=== PATIENT | female | born 1935 | race Caucasian/White ===

== ENCOUNTER 2016-11-15 08:43 | Day surgery (SDC) | payer MEDICARE, OTHER ==
--- NOTE | 2016-11-15 07:06 | History and Physical - [facility] ---
CHIEF COMPLAINT/HISTORY OF CHIEF COMPLAINT: This patient presents with a history of an intractable lumbar radiculitis. Due to the failure of all therapy including a spinal cord stimulator trial, the patient presents today for an implanted spinal opioid infusion trial with Hydromorphone. PAST MEDICAL HISTORY: Bladder dysfunction, degenerative arthritis, and radiculitis. PAST SURGICAL HISTORY: Hysterectomy, cancer, colon surgery, ankle and sternal fracture repairs. EMPLOYMENT STATUS: Retired. MEDICATIONS ON ADMISSION: List to be provided. ALLERGIES: None. FAMILY/PSYCHOSOCIAL HISTORY: Social history - Noncontributory. Family history - Cancer. SYSTEMS REVIEW: The patient seems appropriated in no acute distress. The remainder of the systems review is positive for glasses, degenerative arthritis , and difficulty with sleeping. PHYSICAL EXAMINATION: Height is 5'3", weight is 170. No vital signs. HEENT: Within normal limits. LUNGS: Clear. HEART: Regular rate and rhythm. ABDOMEN: Nontender. MUSCULOSKELETAL: Examination of the musculoskeletal system shows diffuse tenderness of the lumbar spine. Range of motion causing pain into both legs, somewhat more left than right. Ambulation - No assistive device utilized. NEUROLOGIC: Cranial nerves are intact. IMPRESSION: INTRACTABLE LUMBAR RADICULITIS, ICD10 CODE M54.16 AND M54.17. PLAN: The patient is here for an implanted spinal catheter infusion trial with Hydromorphone. The procedure will be considered outpatient and an overnight stay will be evaluated. All of the potential risks, side effects and complications have been carefully reviewed and discussed including nerve root injury, spinal cord injury, dural puncture, spinal headache and failure of the device to control pain. The patient understands, has read all of the appropriate information provided including the [employer] spinal opioid infusion device CD-ROM and information book which carefully outlines all of the potential risks, side effects and complications. An epidural blood patch will be attempted to help minimize the incidence of a dural puncture and spinal headache. The patient understands and has agreed. JAVAD SCHMITZ D.O. Date & Time JOB NUMBER: [id number] MTDD
[~2016-11-15 08:43] MED LIST: ACETAMINOPHEN 1,000 MG/100 ML BTL IV ONE; CEFAZOLIN 2 Gram 2 GM/50 ML BAG IVPB ONE; FAMOTIDINE 20MG TABLET PO ONE; HYDROMORPHONE PF 2MG/ML AMP 0.004 MG in 0.9 % SODIUM CHLORIDE 10ML VIA 0.998 ML IV ONE; HYDROMORPHONE PF 2MG/ML AMP 2 MG in 0.9 % SODIUM CHLORIDE 500ML 499 ML IV ONE; MECLIZINE 25 MG TABLET PO ONE; METOCLOPRAMIDE 10 MG TABLET PO ONE
[2016-11-15] MEDS ORDERED: HYDROMORPHONE HCL 2 MG/ML VIAL IM PRN (12:16)
[2016-11-15] MEDS ORDERED: DIPHENHYDRAMINE HCL 25 MG CAPSULE PO PRN ×2 (12:16)
[2016-11-15] MEDS ORDERED: HYDROMORPHONE HCL 1 MG/ML CPJ IM PRN (12:16)
[2016-11-15] MEDS ORDERED: OXYCODONE/APAP 10MG-325MG TABLET PO PRN (12:16)
[2016-11-15] MEDS ORDERED: SENNOSIDES/DOCUSATE SODIUM UD CAPSULE PO PRN ×2 (12:16)
[2016-11-15] MEDS ORDERED: DIPHENHYDRAMINE HCL IV 50 MG/ML VIAL IVP PRN ×2 (12:16)
[2016-11-15] MEDS ORDERED: METOCLOPRAMIDE HCL 10 MG/2 ML VIAL IVP PRN (12:16)
[2016-11-15] MEDS ORDERED: AL HYDROX/MAG HYDROX 30ML UD PO PRN (12:16)
[2016-11-15] MEDS ORDERED: TEMAZEPAM 15 MG CAPSULE PO PRN ×2 (12:16)
[2016-11-15] MEDS ORDERED: HYDROCODONE/APAP 7.5/325MG TABLET PO PRN ×2 (12:16)
[2016-11-15] MEDS ORDERED: METOCLOPRAMIDE 10 MG TABLET PO PRN (12:16)
[2016-11-15] MEDS ORDERED: ACETAMINOPHEN 325 MG TAB PO PRN ×2 (12:16)
[2016-11-15] MEDS ORDERED: PATIENT OWN MED: CITALOPRAM 40 MG PO SCH (12:30)
[2016-11-15] MEDS ORDERED: PATIENT OWN MED: OMEPRAZOLE 40 MG PO SCH (12:30)
[2016-11-15] MEDS ORDERED: LEVOTHYROXINE PO SCH (12:30)
[2016-11-15] MEDS: RINGERS SOLUTION,LACTATED 1,000 ML IV SCH ×2 (13:20→22:28)
[2016-11-15] MEDS ORDERED: LIDOCAINE 1% W/EPI 1:200,000 MPF 30ML SQ ONE (14:05)
[2016-11-15] MEDS ORDERED: CEFAZOLIN 1G VIAL IM ONE (14:05)
[2016-11-15] MEDS ORDERED: HYDROMORPHONE HCL 2 MG/ML VIAL IV ONE (14:05)
[2016-11-15] MEDS ORDERED: BUPIVACAINE 0.5% W/EPI MPF 30 ML VIAL IVP ONE (14:05)
[2016-11-15] MEDS ORDERED: PROPOFOL 10 MG/ML VIAL IV ONE (15:20)
[2016-11-15] MEDS ORDERED: LIDOCAINE 2% MDV (20MG/ML) 20ML VIAL IV ONE (15:20)
[2016-11-15] MEDS ORDERED: MIDAZOLAM HCL 2MG/2ML VIAL IV ONE (15:20)
[2016-11-15] MEDS ORDERED: FENTANYL PF 100MCG/2ML VIAL IV ONE (15:20)
[2016-11-15] MEDS: PATIENT OWN MED: GABAPENTIN 600 MG PO SCH ×2 (15:54→22:32)
[2016-11-15] MEDS: PATIENT OWN MED: OMEPRAZOLE 40 MG PO SCH ×2 (15:55→22:31)
[2016-11-15] MEDS: LEVOTHYROXINE PO SCH (15:55)
[2016-11-15] MEDS: PATIENT OWN MED: CITALOPRAM 40 MG PO SCH (15:56)
[2016-11-15] MEDS: CEFAZOLIN 2 Gram 2 GM/50 ML BAG IVPB SCH (18:01)
[2016-11-15] MEDS: OXYCODONE/APAP 10MG-325MG TABLET PO PRN ×2 (18:12→22:33)
[2016-11-15] MEDS: BUSPIRONE 10 MG PO SCH (22:35)
[2016-11-16] MEDS: CEFAZOLIN 2 Gram 2 GM/50 ML BAG IVPB SCH ×2 (02:32→09:56)
[2016-11-16] MEDS: OXYCODONE/APAP 10MG-325MG TABLET PO PRN (04:46)
[2016-11-16] MEDS: LEVOTHYROXINE PO SCH (06:55)
[2016-11-16] MEDS: RINGERS SOLUTION,LACTATED 1,000 ML IV SCH (09:20)
[2016-11-16] MEDS: BUSPIRONE 10 MG PO SCH (10:01)
[2016-11-16] MEDS: PATIENT OWN MED: OMEPRAZOLE 40 MG PO SCH (10:01)
[2016-11-16] MEDS: PATIENT OWN MED: GABAPENTIN 600 MG PO SCH (10:02)
[2016-11-16] MEDS: PATIENT OWN MED: CITALOPRAM 40 MG PO SCH (10:02)
--- NOTE | 2016-11-17 16:11 | RADIOLOGY REPORT ---
EXAM: SPINE, 1 VIEW HISTORY: LEAD PLACEMENT. TECHNIQUE: AP lumbar spine. COMPARISON: None. FINDINGS: Moderate to severe dextroconvex scoliosis of the lumbar spine. Stimulator lead enters the spinal canal in the lower lumbar region with tip extending cephalad to the T12-L1 level. Advanced disc disease lower lumbar spine. IMPRESSION: STIMULATOR EXTENDS CEPHALAD TO THE T12-L1 LEVEL. JOB NUMBER: [id number] MTDD
--- NOTE | 2016-11-22 15:05 | Operative Note - [facility] ---
DATE OF SURGERY: 11/15/16 PREOPERATIVE DIAGNOSES: 1. POST LUMBAR LAMINECTOMY SYNDROME, ICD-10 CODE = M96.1 2. LUMBAR RADICULITIS, ICD-10 CODE = M54.16 AND M54.17. OPERATION: 1. FLUOROSCOPICALLY-GUIDED ACCESS SPINAL SPACE AT L2-3. PLACEMENT OF SPINAL CATHETER TIP T12. 2. DIAGNOSTIC MYELOGRAPHY WITH RADIOLOGIC SUPERVISION AND INTERPRETATION. 3. INJECTION HYDROMORPHONE SPINAL SPACE 0.001 MG. 4. INCISION, SUBCUTANEOUS DISSECTION, AND ANCHORING SPINAL CATHETER TO SUPRASPINOUS FASCIA USING ANCHORING DEVICE AND NONABSORBABLE SUTURE. 5. INCISION, SUBCUTANEOUS DISSECTION, AND CREATION OF SUBCUTANEOUS POUCH AT POSTERIOR GLUTEAL MARGIN. 6. TUNNELING FROM MIDLINE TO POSTERIOR GLUTEAL POUCH WITH TUNNELING TOOL CARRYING SPINAL CATHETER INTO GLUTEAL POUCH. BETWEEN POUCHES, PLACEMENT OF EXTERNAL PORTION OF SPINAL CATHETER INTO FLANK POUCH. 7. INTERFACE INDWELLING SPINAL CATHETER WITH SECOND CATHETER COMPONENT BY WAY OF CONNECTOR. TUNNELING OF SECONDARY CATHETER COMPONENT SUPERIOR 6 CM EXITING SKIN. 8. INTERFACE EXTERNAL CATHETER WITH INFUSION PUMP SET TO DELIVER BY CONTINUOUS INFUSION HYDROMORPHONE AT 0.04 MG PER DAY. 9. CLOSURE OF MIDLINE SPINAL INCISION, VICRYL FOR FASCIA, RUNNING SUBCUTICULAR VICRYL FOR SKIN. DERMABOND CLOSURE. CLOSURE OF LEFT POSTERIOR GLUTEAL POUCH WITH NYLON SUTURE. DRESSINGS PLACED SECURING INCISIONS AND CATHETER UNDER STERILE DRESSING. 10. EPIDURAL BLOOD PATCH AT L3-4. 20 ML AUTOLOGOUS BLOOD DRAWN STERILE TECHNIQUE , LEFT ANTECUBITAL. 11. STERILE DRESSINGS, 4X4s, MEDIPORE TAPE SECURING CATHETER AND ALL CONNECTIONS UNDER STERILE DRESSING. SURGEON: JAVAD SCHMITZ D.O. ANESTHESIA: LOCAL SEDATION. ANESTHESIA PROVIDER: BHAVESH PALACIOS CRNA. INDICATION: This patient presents with a history of an intractable post laminectomy radiculitis. Due to the failure of all therapy, she is here for a spinal infusion trial with Hydromorphone using an implanted catheter technique to reduce the incidence of spinal headaches and reduce the number of penetrations into the spinal space required for a permanent. All the potential risks, side-effects, complications reviewed and discussed. The patient understands and has agreed. PROCEDURE: Intravenous line, vital sign monitoring, IV sedation, prepped and draped sterile technique, and under imaging, the spinal interspace at L2-3 was marked, infiltrated, and using 20-gauge spinal needle paramedian approach bevel long axis, the spinal space was accessed. The space was accessed using an AP and a lateral image for safety. With CSF, a thin-walled spinal catheter was advanced and positioned T12. Diagnostic myelography was performed, the resulting flow characteristics were smooth and linear in the space showing midline catheter position appropriate flow. After the contrast study confirming needle position, a bolus of Hydromorphone at the spinal space 0.001 mg given. The skin above and below the needle infiltrated, incision made, and subcutaneous dissection was conducted to the supraspinous fascia. The needle was removed and the catheter was anchored to the fascia with nonabsorbable suture. At the left posterior gluteal margin, a site picked by the patient for the eventual implanted pump, skin infiltrated, incision made, and subcutaneous dissection was conducted to form a small subcutaneous pouch. A tunneling tool was used to carry the spinal catheter into this pouch. The spinal catheter was interfaced with the secondary catheter component by way of connector. The secondary catheter component was tunneled subcutaneously from this pouch superior 6 cm exiting skin. The external catheter component was interfaced with an external infusion pump, which was set to deliver Hydromorphone at 0.04 mg per day. Antibiotic irrigation and Bovie for hemostasis. The midline incision was closed Vicryl for fascia, running subcuticular Vicryl for skin. Dermabond closure. The posterior gluteal pouch was closed with nylon suture. At L3-4, which was one level below the dural puncture, skin infiltrated and an 18- gauge Tuohy needle with [id number] at the epidural space. Simultaneously , 20 mL of autologous blood drawn sterile technique from the left antecubital. An epidural blood patch was then performed at this level with this blood. Needle removed. The dressings were reinforced with the catheter and all components under sterile dressing. She was then transported to the Recovery Room stable, flat, pillow under head and knees. Stable, showing no side-effects. She will be kept flat for four hours, slowly elevated for one, but because of age, she will be kept overnight for observation and discharged in the morning. DISCHARGE INSTRUCTIONS IN THE MORNIN. The sites to remain clean and dry. She has been advised and cautioned to monitor the catheter to ensure no pulling or the catheter from the pump. The sites will remain clean and dry. No showering or bathing in any way that would compromise the dressings. 2. Standard medications including Levaquin, the antibiotic, 500 mg once a day for 14 days. 3. Spinal opioid side-effects including; respiratory depression, nausea, vomiting, constipation, urinary retention, light-headedness, or rash have all been discussed and reviewed. Should they happen, contact the clinic or go to a local Emergency Room. All other instructions were provided. Numbers to contact. Problems given. She will be discharged in the morning. cc: Dr. Michelle Oconnell JOB NUMBER: [id number] MTDD
== END 2016-11-16 11:25 | disposition home or self-care (01) ==
LOC: SUR 08:43 → MEDSURG 12:38 → SUR 11-16 11:25
PROVIDERS: ATTEND Pain Medicine Interventional Pain Medicine
DX: M96.1 Postlaminectomy syndrome, not elsewhere classified (principal); M54.16 Radiculopathy, lumbar region; M54.17 Radiculopathy, lumbosacral region
CPT/HCPCS: 72020; 94760; 62350; 00630; Q9967; J3010; J1170 ×2; J0690 ×2; J7040; J7120

== ENCOUNTER 2016-11-29 06:43 | Day surgery (SDC) | payer MEDICARE, OTHER ==
--- NOTE | 2016-11-29 06:41 | History and Physical Report ---
DATE: 11/29/2016. CHIEF COMPLAINT: This is a patient with a history of an intractable radiculitis. HISTORY OF PRESENT ILLNESS: She has an ongoing implanted spinal catheter infusion trial with hydromorphone. Despite a series of increases in her infusion characteristics, she denies any appreciable pain control. She is here for removal of the device. PAST MEDICAL HISTORY: Bladder dysfunction, severe degenerative arthritis, hypertension. PAST SURGICAL HISTORY: Hysterectomy, colon surgery, sternal fracture repair. MEDICATIONS ON ADMISSION: To be provided. ALLERGIES: None. FAMILY HISTORY: Thyroid disease, asthma, cancer. SOCIAL HISTORY: Noncontributory. PHYSICAL EXAMINATION: General: Height is 5 feet, 1 inch. Weight is 150 pounds. Vital Signs: Unavailable. HEENT: Within normal limits. Lungs: Clear. Heart: Regular rate and rhythm. Abdomen: Nontender. Musculoskeletal: Examination of the musculoskeletal system shows the dressing for the implanted spinal catheter trial to be intact. The external pump is still interfaced to the catheter and is infusing appropriately. The underlying pattern of pain appears to be low back with a bilateral lower extremity extension. Neurologic: Cranial nerves are intact. IMPRESSION: 1. INTRACTABLE LUMBAR RADICULITIS, ICD-10 CODE M54.16 AND M54.17. 2. IMPLANTED SPINAL CATHETER INFUSION TRIAL WITH HYDROMORPHONE. PLAN: Despite multiple efforts, we have failed to appreciably control pain through this trial. With that in mind, the trial would be considered unsuccessful and the catheter will be removed. The potential risks, side effects, and complications have been carefully reviewed and discussed. The procedure will be considered outpatient. JAVAD SCHMITZ D.O. Date & Time JOB NUMBER: [id number] cc: Kevin Egan
[~2016-11-29 06:43] MED LIST changes: -HYDROMORPHONE PF 2MG/ML AMP 0.004 MG in 0.9 % SODIUM CHLORIDE 10ML VIA 0.998 ML IV ONE; -HYDROMORPHONE PF 2MG/ML AMP 2 MG in 0.9 % SODIUM CHLORIDE 500ML 499 ML IV ONE
[2016-11-29] MEDS ORDERED: LIDOCAINE 1% W/EPI 1:200,000 MPF 30ML SQ ONE (11:00)
[2016-11-29] MEDS ORDERED: BUPIVACAINE 0.5% W/EPI MPF 30 ML VIAL IVP ONE (11:00)
[2016-11-29] MEDS ORDERED: CEFAZOLIN 1G VIAL IM ONE (11:00)
[2016-11-29] MEDS ORDERED: HYDROCODONE/APAP 7.5/325MG TABLET PO ONE (11:00)
--- NOTE | 2016-11-29 15:10 | Operative Note - [facility] ---
DATE OF SURGERY: 11/29/16 PREOPERATIVE DIAGNOSES: 1. LUMBAR RADICULITIS, ICD-10 CODE = M54.16 AND M54.17. 2. INTRASPINAL CATHETER INFUSION SYSTEM HYDROMORPHONE, FAILED TRIAL. OPERATION: 1. FLUOROSCOPICALLY-GUIDED INCISION AND SUBCUTANEOUS DISSECTION AND REMOVAL OF INDWELLING SPINAL CATHETER. 2. FLUOROSCOPICALLY-GUIDED INCISION, SUBCUTANEOUS DISSECTION, AND REMOVAL OF EXTERNAL SPINAL CATHETER. SURGEON: JAVAD SCHMITZ D.O. ANESTHESIA: LOCAL SEDATION. ANESTHESIA PROVIDER: ALIN TAYLOR CRNA INDICATION: This patient presents with a history of intractable lumbar radiculitis with an ongoing implanted spinal infusion trial Hydromorphone. The spinal dose achieved at 0.16 mg per day infusion, which is typically sufficient to control most pain patterns. This patient, however, had zero pain control. Due to the failure of the pain relief, she is here for removal of the system. PROCEDURE: Intravenous line, vital sign monitoring, IV sedation, prepped and draped with sterile technique. Under imaging, the incision for the implanted spinal catheter was infiltrated, incision made, and subcutaneous dissection was conducted to the catheter and the anchor. The anchor was removed intact along with the anchoring suture. A pursestring suture was placed and the spinal catheter removed intact; this pursestring suture stopping CSF leak. Tip of the catheter identified under imaging; the catheter tip at T12-L1 was removed. At the left posterior gluteal margin, infiltration of the incisional pouch was made , subcutaneous dissection was conducted to the anchor and the connector. Connector removed and the externalized catheter was removed intact with its interface to the indwelling catheter. Antibiotic irrigation. Bovie for hemostasis. The incisions were then closed Vicryl for fascia, running subcuticular Vicryl for skin. Dermabond closure. She was transported to the Recovery Room stable showing no side-effects from the procedure or the sedation. DISCHARGE INSTRUCTIONS: 1. The sites will remain clean and dry although the Dermabond will allow showering. 2. Standard medications resumed including the antibiotic, Levaquin, 500 mg a day for 14 days. 3. Standard medications resumed. 4. The office will contact the patient in 3-5 days to evaluate the incisional site. Until then, she is to keep her activities low, limit bend, lift, push, pull. All other instructions provided, numbers to contact with problems given, she was then discharged. cc: Dr. Michelle Oconnell JOB NUMBER: [id number] MTDD
[2016-11-29] MEDS ORDERED: MIDAZOLAM HCL 2MG/2ML VIAL IV ONE (16:50)
[2016-11-29] MEDS ORDERED: HYDROMORPHONE HCL 2 MG/ML VIAL IV ONE (16:50)
[2016-11-29] MEDS ORDERED: LIDOCAINE 2% MDV (20MG/ML) 20ML VIAL IV ONE (16:50)
[2016-11-29] MEDS ORDERED: PROPOFOL 10 MG/ML VIAL IV ONE (16:50)
[2016-11-29] MEDS ORDERED: EPHEDRINE SULFATE 50 MG/ML ML IV ONE (16:50)
== END 2016-11-29 09:30 | disposition home or self-care (01) ==
LOC: SUR 06:43
PROVIDERS: ATTEND Pain Medicine Interventional Pain Medicine
DX: T85.890A Other specified complication of nervous system prosthetic devices, implants and grafts, initial encounter (principal); M54.16 Radiculopathy, lumbar region; M54.17 Radiculopathy, lumbosacral region; I10 Essential (primary) hypertension; E03.9 Hypothyroidism, unspecified
CPT/HCPCS: J0690